=== PATIENT | female | born 1990 | race Caucasian/White ===

== ENCOUNTER 2019-11-30 10:58 | Inpatient (IN) ==
[2019-11-30] MEDS ORDERED: Lactated Ringers 1000 ml BAG 1,000 ML IV ONE ×2 (12:47→20:44)
[2019-11-30] MEDS ORDERED: Lactated Ringers 1000 ml BAG 1,000 ML IV SCH ×2 (13:00→21:00)
[2019-11-30] MEDS ORDERED: Penicillin G Potassium IV 5,000,000 UNITS in NS 0.9% 100 ml BAG 100 ML IVPB ONE (13:30)
[2019-11-30 14:12] LABS: Urine Benzodiazepine Screen None Detected (None Detect); Urine Cannabinoids Screen None Detected (None Detect); Urine Opiates Screen None Detected (None Detect)
[2019-11-30 14:38] LABS: ABS Monocytes 0.5 10^3/ul (0-0.8); Eosinophil % 0.6 %; Hematocrit 40 % (35-47); Hemoglobin 13.5 g/dL (12.0-16.0); Lymphocyte % 15.6 %; Mean Corpuscular HGB Conc 34 g/dL (31-36); Mean Corpuscular Hemoglobin 30 pg (27-31); Mean Corpuscular Volume 89 fL (80-97); Mean Platelet Volume 9.1 fL (7.4-10.4); Nucleated Red Blood Cells % 0.1; Platelet Count 142 10^3/uL (150-450); Red Blood Count 4.48 10^6 /uL (3.70-4.87); Red Cell Distribution Width 15 % (10-15); White Blood Count 6.6 10^3/uL (3.5-10.8)
[2019-11-30] MEDS: Ondansetron 4 mg VIAL 2 MG/ML 2 ml VIAL IV PRN (17:26)
[2019-11-30] MEDS ORDERED: NS 0.9% 100 ml BAG 100 ML ONE (18:06)
[2019-11-30] MEDS: Penicillin G Potassium IV 3,000,000 UNITS in NS 0.9% 100 ml BAG 100 ML IVPB SCH ×2 (18:10→22:17)
[2019-11-30] MEDS ORDERED: OBEPIDURAL 250 ML EPIDURAL ONE (19:39)
[2019-11-30] MEDS ORDERED: fentaNYL 100 mcg/2 ml 50 MCG/ML VIAL ONE (20:12)
[2019-11-30] MEDS ORDERED: Phenylephrine 40 mcg/mL 10mL (400mcg) SYRINGE IV PUSH PRN ×2 (20:44)
[2019-11-30] MEDS ORDERED: Sodium Citrate/Citric Acid LIQ 15 ML UDC PO PRN (20:44)
[2019-11-30] MEDS ORDERED: EPHEDrine (Pressors) 50 MG/ML VIAL IV PUSH PRN ×2 (20:44)
[2019-11-30] MEDS ORDERED: OBEPIDURAL 250 ML EPIDURAL SCH (21:00)
[2019-12-01] MEDS: Ondansetron 4 mg VIAL 2 MG/ML 2 ml VIAL IV PRN (01:35)
[2019-12-01] MEDS: Penicillin G Potassium IV 3,000,000 UNITS in NS 0.9% 100 ml BAG 100 ML IVPB SCH ×2 (02:05→07:09)
[2019-12-01] MEDS ORDERED: Oxytocin in LR 20 UNITS/1,000 ML BAG IVPB ONE (04:33)
[2019-12-01] MEDS ORDERED: Glycerin ADULT 2.4 gm SUPP PR PRN (05:06)
[2019-12-01] MEDS ORDERED: Witch Hazel PAD JAR TOPICAL PRN (05:06)
[2019-12-01] MEDS ORDERED: Lactated Ringers 1000 ml BAG 1,000 ML IV SCH (06:00)
[2019-12-01] MEDS: Dibucaine 1% OINT 28.35 GM TUBE PR PRN ×2 (06:05→06:07)
[2019-12-01] MEDS ORDERED: Ammonia Inhalant 1 EA AMP ONE (07:57)
[2019-12-01] MEDS ORDERED: Lidocaine 1% VIAL 10 MG/ML VIAL ONE (08:26)
[2019-12-01] MEDS ORDERED: Phenylephrine 40 mcg/mL 10mL (400mcg) SYRINGE ONE (08:26)
[2019-12-01] MEDS ORDERED: Measles, Mumps,Rubella VACC 0.5 ML/VIAL SUBCUT ONE (09:00)
[2019-12-02 06:41] LABS: ABS Basophils 0.1 10^3/ul (0-0.2); ABS Eosinophils 0.1 10^3/ul (0-0.6); ABS Lymphocytes 1.3 10^3/ul (1.0-4.8); ABS Monocytes 0.6 10^3/ul (0-0.8); ABS Neutrophils 7.1 10^3/ul (1.5-7.7); Eosinophil % 1.6 %; Hematocrit 33 % (35-47); Hemoglobin 11.3 g/dL (12.0-16.0); Lymphocyte % 13.9 %; Mean Corpuscular HGB Conc 34 g/dL (31-36); Mean Corpuscular Hemoglobin 31 pg (27-31); Mean Corpuscular Volume 89 fL (80-97); Mean Platelet Volume 9.3 fL (7.4-10.4); Platelet Count 114 10^3/uL (150-450); Red Cell Distribution Width 14 % (10-15); White Blood Count 9.2 10^3/uL (3.5-10.8)
[2019-12-02] MEDS: Ondansetron ODT 4 mg TAB 4 MG TAB SL PRN (21:37)
[2019-12-03] MEDS: Ondansetron ODT 4 mg TAB 4 MG TAB SL PRN (09:13)
[2019-12-03 09:32] VITALS: BP 122/72
== END 2019-12-03 16:08 | disposition home or self-care (01) | DRG 807 ==
LOC: MCHOBOUT 10:58 → MCHOB 13:11
PROVIDERS: ADMIT Midwife; ATTEND Midwife